=== PATIENT | female | born 1985 | race Caucasian/White ===

== ENCOUNTER → 2016-03-19 | Day surgery (SDC) | payer OTHER ==
[2016-03-19] VITALS (9 sets, daily range): BP systolic 93–113; BP diastolic 59–73
[~2016-03-19] VITALS: Ht 172.7 cm; Wt 52.2 kg
[~2016-03-19] MED LIST: Bacitracin 50000 Units Vial ONE; Betadine 10% Oint 15gm TOPIC ONE; Bupivacaine 0.25% Inj 30ml INJ ONE; Dexamethasone 4mg/ml vial ONE; DiphenhydrAMINE 50mg/ml Inj IVP PRN; Hydromorphone 0.5mg/0.5ml inj IVP PRN; Ketorolac 30mg Inj ONE; LR 1000ml 1,000 ML IVLG SCH; LR 1000ml ONE; Lidocaine 1% Plain 30 ml INJ ONE; Meperidine 25mg/ml Inj IV PRN; Midazolam 2mg/2ml Inj ONE; NKM; NS Irrig 1000ml ONE; Propofol 10mg/ml 20ml IV ONE; Sterile Water Irrig 1000ml IRRIG ONE; ceFAZolin sod 1 GM in NS 55 ML IVPB ONE; fentaNYL 100 mcg/2 mL IV ONE
[2016-03-19 09:53] LABS: BASOPHILS % (AUTO) 1.1 % (0.0-2.0); EOSINOPHILS % (AUTO) 0.6 % (0.0-3.0); LYMPHOCYTES % (AUTO) 16.1 % (20.0-45.0); MEAN CORPUSCULAR HGB CONC 33.7 G/DL (32.0-36.0); MEAN CORPUSCULAR VOLUME 89 FL (80-99); MEAN PLATELET VOLUME 9.7 FL (6.5-10.1); MONOCYTES % (AUTO) 6.5 % (1.0-10.0); NEUTROPHILS % (AUTO) 75.6 % (45.0-75.0); PLATELET COUNT 160 K/UL (150-450); RED CELL DISTRIBUTION WIDTH 11.6 % (11.6-14.8)
[2016-03-19 10:11] LABS: INR 1.1 (0.9-1.1); PROTHROMBIN TIME 11.2 SEC (9.30-11.50)
[2016-03-19 10:12] LABS: ANION GAP 14 (5-15); CARBON DIOXIDE 26 mEQ/L (20-30); CHLORIDE 101 mEQ/L (98-107); CREATININE 0.7 mg/dL (0.5-0.9); GLOMERULAR FILTRATION RATE > 60 mL/min (>60); HEMOLYSIS 49; SODIUM 141 mEQ/L (135-145)
--- NOTE | 2016-03-19 12:21 | Pre-Procedure Note/Attestation ---
Pre-Procedure Note/Attestation Complete Prior to Procedure Planned Procedure: left Procedure Narrative: surgical excision of mass and reduction of bony exostosis left hallus Indications for Procedure Pre-Operative Diagnosis: painful mass and bony exostosis left hallux Attestation I attest that I discussed the nature of the procedure; its benefits; risks and complications; and alternatives (and the risks and benefits of such alternatives ), prior to the procedure, with the patient (or the patient's legal sales representative [employer]). I attest that, if there was a reasonable possibility of needing a blood transfusion, the patient (or the patient's legal sales representative [employer]) was given the [facility] standardized written summary, pursuant to the Sy Hira Blood Safety Act ([place] Health and Safety Code # 1645, as amended). I attest that I re-evaluated the patient just prior to the surgery and that there has been no change in the patient's H&P, except as documented below: LAURENCE CLEMENS DPM Mar 19, 2016 12:21
--- NOTE | 2016-03-19 13:03 | Anethesia Preoperative Eval ---
Anesthesia Pre-op PMH/ROS General Date of Evaluation: Mar 19, 2016 Time of Evaluation: 12:25 Anesthesiologist: Deirdre ASA Score: ASA 2 Mallampati Score Class I : Soft palate, uvula, fauces, pillars visible Class II: Soft palate, uvula, fauces visible Class III: Soft palate, base of uvula visible Class IV: Only hard plate visible Mallampati Classification: Class III - micrognatia Surgeon: Deyanira Diagnosis: L foot mass Surgical Procedure: Excision of L foot mass Anesthesia History: none Family History: no anesthesia problems Allergies: Coded Allergies: No Known Allergies (Unverified , 03/18/16) Medications: see eMAR Past Medical History Cardiovascular: Denies: CAD, HTN, MO, arrhythmia, other, valve dz Pulmonary: Denies: COPD, NORMA, asthma, other Gastrointestinal/Genitourinary: Denies: CRI, ESRD, GERD, other Neurologic/Psychiatric: Denies: CVA, TIA, dementia, depression/anxiety, other Endocrine: Denies: DM, hypothyroidism, other, steroids HEENT: Denies: NAVAJO (L), NAVAJO (R), cataract (L), cataract (R), glaucoma, other Hematology/Immune: Denies: DVT, anemia, bleeding disorder, other Musculoskeletal/Integumentary: Denies: DDD, DJD, OA, RA, edema, other PMH Narrative: as above PSxH Narrative: None Anesthesia Pre-op Phys. Exam Physician Exam Last Vital Signs Date Time Temp Pulse Resp B/P Pulse Ox O2 Delivery O2 Flow Rate FiO2 03/19/16 09:44 98.5 83 17 113/73 100 Room Air Constitutional: NAD Neurologic: CN 2-12 intact Cardiovascular: RRR, no M/R/G Respiratory: CTA Gastrointestinal: S/NT/ND Airway Exam Mallampati Score: Class III MO: full Neck: flexible TMD: short ROM: full Teeth: intact Dentures: no lower, no upper Anesthesia Pre-op A/P Labs Hematology Test 03/19/16 09:35 White Blood Count 8.0 K/UL (4.8-10.8) Red Blood Count 5.00 M/UL (4.20-5.40) Hemoglobin 15.0 G/DL (12.0-16.0) Hematocrit 44.5 % (37.0-47.0) Mean Corpuscular Volume 89 FL (80-99) Mean Corpuscular Hemoglobin 30.0 PG (27.0-31.0) Mean Corpuscular Hemoglobin Concent 33.7 G/DL (32.0-36.0) Red Cell Distribution Width 11.6 % (11.6-14.8) Platelet Count 160 K/UL (150-450) Mean Platelet Volume 9.7 FL (6.5-10.1) Neutrophils (%) (Auto) 75.6 % (45.0-75.0) H Lymphocytes (%) (Auto) 16.1 % (20.0-45.0) L Monocytes (%) (Auto) 6.5 % (1.0-10.0) Eosinophils (%) (Auto) 0.6 % (0.0-3.0) Basophils (%) (Auto) 1.1 % (0.0-2.0) Coagulation Test 03/19/16 09:35 Prothrombin Time 11.2 SEC (9.30-11.50) Prothromb Time International Ratio 1.1 (0.9-1.1) Activated Partial Thromboplast Time 29 SEC (23-33) Chemistry Test 03/19/16 09:35 Sodium Level 141 mEQ/L (135-145) Potassium Level 4.0 mEQ/L (3.4-4.9) Chloride Level 101 mEQ/L (98-107) Carbon Dioxide Level 26 mEQ/L (20-30) Anion Gap 14 (5-15) Blood Urea Nitrogen 9 mg/dL (7-23) Creatinine 0.7 mg/dL (0.5-0.9) Estimat Glomerular Filtration Rate > 60 mL/min (>60) Glucose Level 79 mg/dL (74-106) Calcium Level 9.0 mg/dL (8.6-10.2) Urine Test Test 03/19/16 09:00 Urine HCG, Qualitative Negative Studies Pre-op Studies: EKG - NSR Risk Assessment & Plan Assessment: ASA 2 Plan: MAC Status Change Before Surgery: No Pre-Antibiotics Drug: Ancef 1 gr. Given Within 1 Hr of Incision: Yes Time Given: 12:48 YUMIKO QUEZADA M.D. Mar 19, 2016 13:03
--- NOTE | 2016-03-19 13:28 | Brief Operative Note ---
Immediate Post Operative Note Operative Note Pre-op Diagnosis: painful mass and bony exostosis left hallux Procedure: surgical removal of mass left hallux , surgical reduction of bony exostosis left hallux Post-op Diagnosis: same as pre op Post-op Diagnosis: same as pre-op Surgeon: laurence thompson Additional Surgeons: joshua Anesthesia: regional, MAC Specimen: yes Complications: none Condition: stable Estimated Blood Loss: none Drains: none Tourniquet time: 31 Implant(s) used?: No LAURENCE THOMPSON DPM Mar 19, 2016 13:28
--- NOTE | 2016-03-19 13:59 | Diagnostic Imaging Report ---
Indications: Left foot pain Technique: 3 views of the left foot Findings: Comparison: None. No fracture, dislocation, lytic destruction, periosteal reaction, surrounding soft tissue swelling, or other acute changes are demonstrated. Fourth and fifth distal interphalangeal joint is fused. No additional Deformity, alignment abnormality, arthritic change, soft tissue calcification, or other chronic changes are demonstrated. IMPRESSION: Left fourth and fifth distal interphalangeal joint effusion, may be developmental or postsurgical Otherwise negative left foot series
--- NOTE | 2016-03-19 14:00 | Diagnostic Imaging Report ---
Indication: Cough Technique: Single portable AP view of the chest. Findings: Comparison: None. Lung symmetrically hyperinflated but clear. The bones and extra pulmonary soft tissues, cardiomediastinal silhouette, pulmonary vasculature, and pleural surfaces are unremarkable. IMPRESSION: Bilateral pulmonary hyperinflation may be voluntary, represent body habitus, or represent acute air-trapping in the setting of small airways disease. Correlate clinically. Otherwise negative.
--- NOTE | 2016-03-19 14:48 | Immediate Post-Op Evaluation ---
Immediate Post-Op Evalulation Immediate Post-Op Evalulation Procedure: Excision of L foot mass Date of Evaluation: Mar 19, 2016 Time of Evaluation: 13:33 IV Fluids: 400 Blood Products: none Estimated Blood Loss: min Urinary Output: none Blood Pressure Systolic: 116 Blood Pressure Diastolic: 62 Pulse Rate: 74 Respiratory Rate: 20 O2 Sat by Pulse Oximetry: 99 Temperature (Fahrenheit): 97.5 Pain Score (1-10): 1 Nausea: No Vomiting: No Complications none Patient Status: awake, patent, none Hydration Status: adequate YUMIKO QUEZADA M.D. Mar 19, 2016 14:48
--- NOTE | 2016-03-19 14:50 | 48 Hour Post Anesthesia Eval ---
Post Anesthesia Evaluation Procedure: Excision of L foot mass Date of Evaluation: Mar 19, 2016 Time of Evaluation: 14:48 Blood Pressure Systolic: 108 0: 62 Pulse Rate: 74 Respiratory Rate: 20 Temperature (Fahrenheit): 97.4 O2 Sat by Pulse Oximetry: 98 Airway: patent Nausea: No Vomiting: No Pain Intensity: 1 Hydration Status: adequate Cardiopulmonary Status: stable Mental Status/LOC: patient returned to baseline Follow-up Care/Observations: n/a Post-Anesthesia Complications: none Follow-up care needed: ready to discharge YUMIKO QUEZADA M.D. Mar 19, 2016 14:50
--- NOTE | 2016-03-19 16:08 | Diagnostic Imaging Report ---
Indications: Left foot pain, postop Technique: 3 views left foot at 1355 Findings: Comparison: 0921 And soft tissues overlying the first metatarsal head are mildly swollen with gas. No obvious bony anatomic alteration in. Overlying bandage. IMPRESSION: Surgical changes as described.
--- NOTE | 2016-03-20 17:27 | Pre-op HX & Phy Repo 2 SIG ---
DATE OF ADMISSION: 03/19/2016 HISTORY OF PRESENT ILLNESS: This is a 30-year-old female with painful left toe for the past six months. The pain and deformity have been progressively worsening over the past six months. She has tried numerous conservative treatment measures including padding, offloading, shoe gear modification, activity modification, as well as trigger point injections, but she continuously experiencing daily pain. She reports no recent illnesses. No current nausea, vomiting, chills, or shortness of breath. She is complaining of a painful palpable mass on the dorsum of the left hallux. PAST MEDICAL HISTORY: Unremarkable. PAST SURGICAL HISTORY: No pertinent findings. MEDICATIONS: None. ALLERGIES: No known drug allergies. SOCIAL HISTORY: Denies alcohol, tobacco, or illicit drugs. FAMILY HISTORY: No pertinent findings. PHYSICAL EXAMINATION: VITAL SIGNS: Temperature 97.7, pulse 61, respiratory rate 18, blood pressure 120/70, and O2 saturation is 98% on room temperature. DERMATOLOGICAL: No open lesion is noted. There is a palpable mass on the dorsum of the left hallux just medial to the extensor hallucis longus on the base of the proximal phalanx, which is painful to palpation. NEUROLOGICAL: Sensation is intact to light touch. VASCULAR: Dorsalis pedis and posterior tibial artery are palpable. No edema or erythema noted. MUSCULOSKELETAL: Within normal limits with no deviation from normal in terms of the bony structures. LABORATORY DATA: Checked. Urine HCG is negative. ASSESSMENT AND PLAN: This is a 30-year-old female with left foot pain progressively worsened and a painful mass. The patient has tried numerous conservative measures; however, she is still experiencing daily pain. Recommended surgery as a next step in management. The risks, benefits, and alternatives were discussed with the patient in detail who understands and would like to proceed with surgical intervention. All of the patient's questions were answered, and surgery is scheduled for today, 03/19/2016. Ramírez Mcmillan D.P.M. DR: DICK JOB#: [id number] CC:
--- NOTE | 2016-03-20 19:38 | Operative Note - Dictated ---
DATE OF OPERATION: 03/19/2016 SURGEON: Ramírez Mcmillan D.P.M. ANESTHESIOLOGIST: Alberto Gilmore M.D. PREOPERATIVE DIAGNOSES: Left painful mass, left painful bony exostosis, left hallux. POSTOPERATIVE DIAGNOSES: Left painful mass, left painful bony exostosis, left hallux. PROCEDURE: 1. Surgical excision of a mass, left hallux. 2. Surgical reduction of a bony spur, left hallux. HEMOSTASIS: Pneumatic ankle tourniquet set to 250 mmHg. ESTIMATED BLOOD LOSS: Less than 5 mL. MATERIALS: None. INJECTABLE: A 15 mL of 1:1 mixture of 0.25% plain Marcaine and 1% lidocaine was given into the left MPJ preoperatively. Intraoperatively, 2 mL dexamethasone at 2 mL of 4 mg/mL with 6 mL of 0.25% Marcaine was given. PATHOLOGY: Bone and soft tissue mass resected from the first hallux, left, was sent for pathology and for study. DRESSING: Incision site was covered with Xeroform, 4x4, Kerlix, and Coban. COMPLICATIONS: None. CONDITION: Stable. DESCRIPTION OF THE PROCEDURE: The patient was brought into the operating room and was assisted onto the operating table in supine position. She was well padded to avoid excessive pressure. The patient was then given 1 g of Ancef before the start of surgery. A time-out was performed. A cotton padding and pneumatic ankle tourniquet was inflated on the patient's left ankle following IV sedation and local anesthesia was obtained using 50 mL of 1:1 mixture of 0.25% Marcaine and 1% lidocaine plain. The foot was then scrubbed, prepped, and draped in the usual aseptic manner. Attention was directed to the left foot. An Esmarch bandage was then utilized to exsanguinate the patient's left foot and a pneumatic ankle tourniquet was then inflated to 250 mmHg. Local anesthesia was checked and the patient was unresponsive. A skin marker pen was utilized to draw the planned incision site at the dorsal base of the hallux just medial to the extensor hallucis longus. Palpable mass was noticed. The incision was deepened down to the level of the mass through sharp and dull dissection. All vital tissue was retracted and a mass approximately 1 cm in circumference was visualized. The mass was released from all the soft tissue and excised it and sent off to pathology. Further, it was noticed that there were multiple bony exostoses on the dorsum of the proximal base of the hallux where utilizing Suys bur, the exostoses were reduced to their normal structure level and a rasp was utilized to probably smooth out the rough edges. No damage to the extensor hallucis longus or nerve was done. Subsequently, the deep tissues were closed using 3-0 Vicryl. More superficial tissues were closed using 4-0 Vicryl and subsequently, the skin was closed using 4-0 nylon. At this time, the postoperative injection of 6 mL mixture of 2 mL of dexamethasone and 4 mL of 0.25% Marcaine was given in the area for postoperative pain management, reduction of the anesthesia. Once should notice that before the closure, the area was flushed copiously with normal saline. After the skin was closed, surgical dressing was applied consisting of Xeroform, 4 x 4, Kerlix, and Coban. Ankle tourniquet was then deflated, and immediate hyperemia was noticed to digits 1 through 5. The patient tolerated the surgery and anesthesia well without any complications. She was then transferred to the postoperative care unit and states no pain. The patient was reminded to take antibiotics, ibuprofen, and Vicodin as directed. She was also instructed to keep her leg elevated and keep dressing clean, dry, and intact. Repeat radiographs, crutches, and postoperative shoes were ordered. The patient was able to partially weight bear on the left heel, but was advised to minimize standing and ambulation for the next 24 hours. The patient is to be discharged once medically cleared by anesthesiologist and follow up with Dr. Ramírez Mcmillan in the clinical visit. Ramírez Mcmillan D.P.M. DR: DICK JOB#: [id number] CC:
--- NOTE | 2016-03-22 19:13 | Cardiology Report ---
APPROVED REPORT EKG Measurement Heart [id number] Normal sinus rhythm Normal ECG
== END | disposition home or self-care (01) ==
LOC: SUR 08:39
DX: L72.0 Epidermal cyst (principal); M89.9 Disorder of bone, unspecified
CPT/HCPCS: 11421; 28124; 36415; 71010; 73630; 80048; 81025; 85025; 85610; 85730; 93005; 97161; J0690; J1100; J1885; J2001; J2250; J2704; J3010; J3490; J7120; 94003; 94150